=== PATIENT | female | born 1955 | race Caucasian/White ===

== ENCOUNTER 2017-09-17 08:39 | Day surgery (SDC) | payer OTHER ==
[~2017-09-17 08:39] MED LIST: Lactated Ringers 1,000 ML IV SCH; Sodium Chloride 0.9% 5 ML Syringe FLUSH PRN
[2017-09-17] MEDS ORDERED: Midazolam 1 MG/ML 2 ML SDV ONE (08:42)
[2017-09-17] MEDS ORDERED: Propofol 200 MG/20 ML SDV ONE ×2 (08:42→09:40)
[2017-09-17] MEDS ORDERED: Midazolam 1 MG/ML 2 ML SDV IV ONE (10:03)
[2017-09-17] MEDS ORDERED: Propofol 200 MG/20 ML SDV IV ONE (10:03)
--- NOTE | 2017-09-17 11:12 | PCM.PRNOTE ---
- Free Text/Narrative Note: PROCEDURE PERFORMED: Colonoscopy PRE-PROCEDURE DIAGNOSIS/INDICATION FOR PROCEDURE: +FIT CONSENT: Informed consent was obtained prior to the procedure after discussion of the risks (including pain, bleeding, infection, perforation, adverse reaction to anesthesia, cardiovascular event), benefits and alternatives and expected outcomes. The patient expressed understanding and wished to proceed. Verbal consent given and consent form signed. PROCEDURAL PAUSE: Completed SEDATION: Per anesthesia DESCRIPTION OF PROCEDURE: Patient was placed in the left lateral decubitus position. After adequate sedation and anesthetic was administered, a rectal exam was performed revealing healed external hemorrhoids. A lubricated Olympus Video Colonoscope was inserted into the rectum and air insufflation was performed. The colonoscope was advanced through the rectum, sigmoid, descending, transverse, and ascending colon without difficulties. The cecum was reached and the ileocecal valve as well as the appendiceal orifice were identified and pictorially documented. After adequate visualization of the cecum, the scope was withdrawn, giving 360- degree views of the colonic mucosa and retroflexion was performed in the rectum with the following findings noted: Ileocecal valve: Normal Cecum: Two polyps measuring 4mm and 7mm removed with forceps and hot snare respectively with adequate removal and subsequent hemostasis Ascending colon: Normal Hepatic flexure: Normal Transverse colon: Normal Splenic flexure: Normal Descending colon: Normal Sigmoid colon: Normal Rectum: Normal The scope was straightened, air suction performed, and the scope withdrawn without complication. Preparation adequacy good. IMPRESSION: Colonoscopy performed revealing two cecal poylps, pathology now pending, and external hemorrhoids PLAN: Will contact the patient when pathology results received with recommendation for repeat colonoscopy.
== END 2017-09-17 12:35 | disposition home or self-care (01) ==
LOC: KA.SDS 08:39
PROVIDERS: ATTEND Family Medicine
DX: R19.5 Other fecal abnormalities (principal); D12.0 Benign neoplasm of cecum; K64.4 Residual hemorrhoidal skin tags; K63.5 Polyp of colon; I10 Essential (primary) hypertension; Z68.41 Body mass index [BMI] 40.0-44.9, adult; Z79.899 Other long term (current) drug therapy; Z88.2 Allergy status to sulfonamides; Z88.1 Allergy status to other antibiotic agents; Z91.010 Allergy to peanuts
CPT/HCPCS: J2250; J2704; J7120

== ENCOUNTER 2020-07-20 14:42 | Emergency (ER) | payer OTHER ==
--- NOTE | 2020-07-20 15:02 | EDM.PDOC ---
ED HPI GENERAL MEDICAL PROBLEM - General Chief Complaint: General Stated Complaint: HIGH BLOOD PRESSURE,ANXIETY ATTACK Time Seen by Provider: 07/20/20 14:48 Source of Information: Reports: Patient, Provider History Limitations: Reports: No Limitations - History of Present Illness INITIAL COMMENTS - FREE TEXT/NARRATIVE: Patient presents with anxiety and panic that started this morning after hearing that her 17-year-old granddaughter apparently ran away during the night. She was discovered missing at 0700. Patient was vomiting and wretching incessantly when she went to the [facility] and saw ISAIAH Serrano who called me that she was coming via ambulance to ER. Pat did start IV and gave her Zofran 4 mg. Blood pressure has been high today too but isn't normally a problem patient says. She denies any pain and the nausea is much better now. She just feels very anxious. Treatments CHAIR TRIMMER: Reports: Nitroglycerin, Other (see below) Other Treatments CHAIR TRIMMER: nitro, aspirin, and zofran given in ambulance - Related Data Allergies Allergy/AdvReac Type Severity Reaction Status Date / Time peanut oil Allergy Hives Verified 07/20/20 14:46 Sulfa (Sulfonamide Allergy Rash Verified 07/20/20 14:46 Antibiotics) sulfamethoxazole Allergy Cannot Verified 07/20/20 14:46 [From Bactrim] Remember trimethoprim [From Bactrim] Allergy Cannot Verified 07/20/20 14:46 Remember Home Meds: Home Meds *Rup Rub 1 applic TOP TID PRN 09/14/17 [History] Ergocalciferol (Vitamin D2) [Vitamin D2] 50,000 unit PO WEEKLY 09/14/17 [History] Fluticasone Propionate [Flonase] 2 spray NASBOTH DAILY 09/14/17 [History] Ibuprofen 800 mg PO TID PRN 09/14/17 [History] estradioL [Vivelle-Dot] 1 patch TOP ASDIRECTED 09/14/17 [History] Past Medical History HEENT History: Reports: Impaired Vision Respiratory History: Reports: Sleep Apnea Gastrointestinal History: Reports: None Genitourinary History: Reports: 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: Musculoskeletal History: Reports: Back Pain, Chronic, Neck Pain, Chronic, Osteoarthritis - Infectious Disease History Infectious Disease History: Reports: Chicken Pox, Measles, Mumps - Past Surgical History HEENT Surgical History: Reports: Tonsillectomy Respiratory Surgical History: Reports: None GI Surgical History: Reports: Colonoscopy Female Surgical History: Reports: Hysterectomy Musculoskeletal Surgical History: Reports: Knee Replacement Social & Family History - Family History Family Medical History: No Pertinent Family History - Caffeine Use Caffeine Use: Reports: Coffee, Tea ED ROS GENERAL - Review of Systems Review Of Systems: See Below Constitutional: Denies: Fever, Chills, Malaise, Weakness HEENT: Reports: No Symptoms Respiratory: Denies: Shortness of Breath, Cough Cardiovascular: Denies: Chest Pain, Lightheadedness, Syncope GI/Abdominal: Reports: Nausea, Vomiting. Denies: Abdominal Pain, Constipation, Diarrhea : Denies: Dysuria, Flank Pain Musculoskeletal: Reports: No Symptoms Skin: Reports: No Symptoms Neurological: Denies: Confusion, Dizziness, Headache, Seizure, Syncope, Trouble Speaking, Difficulty Walking Psychiatric: Reports: Anxiety. Denies: Agitation, Confusion ED EXAM, GENERAL - Physical Exam Exam: See Below Exam Limited By: No Limitations General Appearance: Alert, WD/WN, No Apparent Distress Eye Exam: Bilateral Eye: EOMI, Normal Inspection, PERRL Ears: Normal External Exam, Hearing Grossly Normal Nose: Normal Inspection, No Blood Throat/Mouth: Normal Inspection, Normal Lips, Normal Voice, No Airway Compromise Head: Atraumatic, Normocephalic Neck: Normal Inspection, Full Range of Motion Respiratory/Chest: No Respiratory Distress, Lungs Clear, Normal Breath Sounds, No Accessory Muscle Use Cardiovascular: Regular Rate, Rhythm, No Murmur GI/Abdominal: Normal Bowel Sounds, Soft, Non-Tender, No Organomegaly, No Distention Back Exam: Normal Inspection, Full Range of Motion Extremities: Normal Inspection, Normal Range of Motion Neurological: Alert, Oriented, Normal Cognition, No Motor/Sensory Deficits Psychiatric: Normal Affect, Normal Mood Skin Exam: Warm, Dry, Intact, Normal Color, No Rash Course - Vital Signs Last Recorded V/S: Last Vital Signs Temp 97.8 F 07/20/20 14:48 Pulse 60 07/20/20 14:48 Resp 18 07/20/20 14:48 BP 196/101 H 07/20/20 14:48 Pulse Ox 99 07/20/20 14:48 - Orders/Labs/Meds Orders: Active Orders 24 hr Category Date Time Status LORazepam [Ativan] Med 07/20/20 14:56 Once 1 mg IVPUSH ONETIME ONE - Re-Assessments/Exams Free Text/Narrative Re-Assessment/Exam: 07/20/20 16:21 Patient is feeling much better now and appears relaxed and much less anxious. Nausea has been controlled with her initial dose of Zofran at the clinic. Lorazepam successfully controlled the anxiety and blood pressure. Patient has been monitored for 1.5 hours since the dosing of Lorazepam and has been stable throughout ER course. She feels ready to go home and would like a few Lorazepam to use if needed. We discussed the treatment regimen and a Rx for Lorazepam 0.5 mg #12, one po q8h prn was given. Discharged to home in stable condition. Departure - Departure Time of Disposition: 16:15 Disposition: Home, Self-Care 01 Condition: Good Clinical Impression: Panic attack as reaction to stress - Discharge Information Instructions: Panic Attack, [id number], Managing Anxiety, Adult Referrals: Pat Ocasio PA-C [Primary Care Provider] - Additional Instructions: You can use the Lorazepam as directed, if needed for anxiety or panic. You shouldn't take more often than 8 hours and only as needed. You had a dose in ER so don't take more today unless you need one at bedtime. Follow up with your PCP if this persists or worsens. Return to ER if needed. Sepsis Event Note (ED) - Evaluation Sepsis Screening Result: No Definite Risk - Focused Exam Vital Signs: Vital Signs Temp Pulse Resp BP Pulse Ox 07/20/20 14:48 97.8 F 60 18 196/101 H 99 - My Orders Last 24 Hours: My Active Orders 07/20/20 14:56 LORazepam [Ativan] 1 mg IVPUSH ONETIME ONE - Assessment/Plan Last 24 Hours: My Active Orders 07/20/20 14:56 LORazepam [Ativan] 1 mg IVPUSH ONETIME ONE
[2020-07-20] MEDS: LORazepam 2 MG/ML SDV IVPUSH ONE (15:03)
== END 2020-07-20 16:35 | disposition home or self-care (01) ==
LOC: KA.ED 14:42
DX: F41.0 Panic disorder [episodic paroxysmal anxiety] (principal); F43.9 Reaction to severe stress, unspecified; Z91.010 Allergy to peanuts; Z88.2 Allergy status to sulfonamides; Z88.1 Allergy status to other antibiotic agents
CPT/HCPCS: 96374; 99284; 99284-25; J2060

== ENCOUNTER → 2020-08-28 18:33 | Emergency (ER) | payer OTHER ==
[~2020-08-28 18:33] MED LIST changes: +LORazepam 2 MG/ML SDV IVPUSH ONE; -Lactated Ringers 1,000 ML IV SCH; +Ondansetron 4 MG/2 ML SDV IVPUSH ONE; +Ondansetron 4 MG/2 ML SDV ONE; -Sodium Chloride 0.9% 5 ML Syringe FLUSH PRN
--- NOTE | 2020-08-28 19:23 | CT ---
[id number] CT/CT Head WO IV EXAM: CT Head WO IV CLINICAL DATA: HEADACHE COMPARISON STUDY: None FINDINGS: No intracranial hemorrhage, extra-axial fluid collection, or acute ischemia. 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 The mass measures up to 1.2 cm. Generalized parenchymal atrophy with scattered areas of nonspecific white matter disease, commonly seen as sequela of chronic microvascular ischemia. Soft tissues are unremarkable. Paranasal sinuses and mastoid air cells are clear. IMPRESSION: No acute intracranial findings. Peña Layton DO 08/28/20 192 Thank you for allowing us to participate in the care of your patient.
--- NOTE | 2020-08-28 19:24 | EDM.PDOC ---
ED HPI GENERAL MEDICAL PROBLEM - General Chief Complaint: Headache Stated Complaint: HEADACHE Time Seen by Provider: 08/28/20 19:00 Source of Information: Reports: Patient History Limitations: Reports: No Limitations - History of Present Illness INITIAL COMMENTS - FREE TEXT/NARRATIVE: 65 YO WF PRESENTS TO ER COMPLAINING OF A FRONTAL HEADACHE WHICH BEGAN EARLIER TODAY. PT REPORTS SHE IS UNDER A LOT OF STRESS AND WHEN THAT OCCURS SHE DEVELOPS A HEADACHE. PT STATES SHE TOOK HER BLOOD PRESSURE TODAY AND HAD READING AT HOME OF 180/90'S PROMPTING CONCERN AND ER EVALUATION. PT WITH ASSOCIATED NAUSEA WITHOUT VOMITING. PT DENIES NECK PAIN, NO FEVER/CHILLS AND NO RECENT ILLNESSES. PT ALERT AND ORIENTED X4, GCS-15. CURRENT BP IN ER 161/83. Onset: Today Duration: Getting Worse Location: Reports: Head Quality: Reports: Ache Severity: Moderate Improves with: Reports: None Worsens with: Reports: None Associated Symptoms: Reports: No Other Symptoms, Headaches, Nausea/Vomiting. De nies: Confusion, Cough, Fever/Chills, Seizure, Syncope, Weakness Headache Pain Score (Numeric/FACES): 10 - Related Data Allergies Allergy/AdvReac Type Severity Reaction Status Date / Time peanut oil Allergy Hives Verified 08/28/20 19:14 Sulfa (Sulfonamide Allergy Rash Verified 08/28/20 19:14 Antibiotics) sulfamethoxazole Allergy Cannot Verified 08/28/20 19:14 [From Bactrim] Remember trimethoprim [From Bactrim] Allergy Cannot Verified 08/28/20 19:14 Remember Home Meds: Home Meds *Rup Rub 1 applic TOP TID PRN 09/14/17 [History] Ergocalciferol (Vitamin D2) [Vitamin D2] 50,000 unit PO WEEKLY 09/14/17 [History] Fluticasone Propionate [Flonase] 2 spray NASBOTH DAILY 09/14/17 [History] Ibuprofen 800 mg PO TID PRN 09/14/17 [History] estradioL [Vivelle-Dot] 1 patch TOP ASDIRECTED 09/14/17 [History] Ascorbate Calcium [Vitamin C] 500 mg PO DAILY 08/28/20 [History] Fish Oil/[place]-3 Fatty Acids [Fish Oil 1,000 MG] 1 gm PO DAILY 08/28/20 [History] Multivitamin [One-Daily Multi-Vitamin] 1 tab PO DAILY 08/28/20 [History] Past Medical History HEENT History: Reports: Impaired Vision Cardiovascular History: Reports: Hypertension Other Cardiovascular History: hypertension with stress Respiratory History: Reports: Sleep Apnea Gastrointestinal History: Reports: None Genitourinary History: Reports: 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 - Infectious Disease History Infectious Disease History: Reports: Chicken Pox, Measles, Mumps - Past Surgical History HEENT Surgical History: Reports: Tonsillectomy Respiratory Surgical History: Reports: None GI Surgical History: Reports: Appendectomy, Colonoscopy Female Surgical History: Reports: Hysterectomy Musculoskeletal Surgical History: Reports: Knee Replacement Other Musculoskeletal Surgeries/Procedures:: back and neck surgeries. bilateral knees and feet. Social & Family History - Family History Family Medical History: No Pertinent Family History - Tobacco Use Tobacco Use Status *Q: Never Tobacco User - Caffeine Use Caffeine Use: Reports: Coffee, Tea - Recreational Drug Use Recreational Drug Use: No ED ROS GENERAL - Review of Systems Review Of Systems: See Below Constitutional: Reports: No Symptoms HEENT: Reports: No Symptoms Respiratory: Reports: No Symptoms Cardiovascular: Reports: No Symptoms Endocrine: Reports: No Symptoms GI/Abdominal: Reports: Nausea : Reports: No Symptoms Musculoskeletal: Reports: No Symptoms Skin: Reports: No Symptoms Neurological: Reports: Dizziness, Headache. Denies: Confusion Psychiatric: Reports: No Symptoms Hematologic/Lymphatic: Reports: No Symptoms Immunologic: Reports: No Symptoms - Physical Exam Exam: See Below Exam Limited By: No Limitations General Appearance: Alert, WD/WN, No Apparent Distress Eye Exam: Bilateral Eye: EOMI, PERRL Head Exam: Atraumatic, Normocephalic Neck: Normal Inspection, Supple, Non-Tender, Full Range of Motion Respiratory/Chest: No Respiratory Distress, Lungs Clear, Normal Breath Sounds, No Accessory Muscle Use, Chest Non-Tender Cardiovascular: Normal Peripheral Pulses, Regular Rate, Rhythm, No Edema, No Gallop, No JVD, No Murmur, No Rub GI/Abdominal: Normal Bowel Sounds, Soft, Non-Tender, No Organomegaly, No Distention, No Abnormal Bruit, No Mass Back Exam: Normal Inspection, Full Range of Motion, NT Extremities: Normal Inspection, Normal Range of Motion, Non-Tender, No Pedal Edema, Normal Capillary Refill Psychiatric: Normal Affect, Anxious Skin Exam: Warm, Dry, Intact, Normal Color, No Rash Course - Vital Signs Last Recorded V/S: Last Vital Signs Temp 97.1 F 08/28/20 18:58 Pulse 71 08/28/20 18:58 Resp 18 08/28/20 18:58 BP 161/83 H 08/28/20 19:40 Pulse Ox 98 08/28/20 18:58 - Orders/Labs/Meds Meds: Medications Discontinued Medications Generic Name Dose Route Start Last Admin Trade Name Freq PRN Reason Stop Dose Admin Lorazepam 1 mg 08/28/20 19:23 08/28/20 19:31 Lorazepam 2 Mg/Ml Sdv IVPUSH 08/28/20 19:24 1 mg ONETIME ONE Administration Ondansetron HCl Confirm 08/28/20 19:07 08/28/20 19:17 Ondansetron 4 Mg/2 Ml Sdv Administered 08/28/20 19:08 Not Given Dose 4 mg .ROUTE .STK-MED ONE Ondansetron HCl 4 mg 08/28/20 19:05 08/28/20 19:07 Ondansetron 4 Mg/2 Ml Sdv IVPUSH 08/28/20 19:06 4 mg ONETIME ONE Administration - Radiology Interpretation Free Text/Narrative:: CT HEAD- NAD - Re-Assessments/Exams Free Text/Narrative Re-Assessment/Exam: 08/28/20 20:06 PT REPORTS FEELING MUCH IMPROVED AFTER ZOFRAN/ATIVAN. CURRENTLY PT WITH A BP OF 142/70. PT ALERT AND ORIENTED X 3 AND IN NAD. PT WOULD LIKE TO GO HOME AND REST Departure - Departure Time of Disposition: 20:09 Disposition: Home, Self-Care 01 Condition: Good Clinical Impression: Headache Qualifiers: Headache type: tension-type Headache chronicity pattern: acute headache Intractability: not intractable Qualified Code(s): G44.209 - Tension-type headache, unspecified, not intractable Hypertension Qualifiers: Hypertension type: unspecified Qualified Code(s): I10 - Essential (primary) hypertension - Discharge Information Instructions: Managing Your Hypertension, General Headache Without Cause Referrals: Pat Ocasio PA-C [Primary Care Provider] - Forms: ED Department Discharge Additional Instructions: 1. DISCHARGE HOME 2. REST 3. TAKE BLOOD PRESSURE DAILY AND RECORD AND FOLLOW UP WITH PCP IN 1 WEEK FOR RE- EVALUATION OF HYPERTENSION 4. RETURN TO ER FOR WORSENING SYMPTOMS Sepsis Event Note (ED) - Evaluation Sepsis Screening Result: No Definite Risk - Focused Exam Vital Signs: Vital Signs Temp Pulse Resp BP Pulse Ox 08/28/20 19:40 161/83 H 08/28/20 19:15 168/94 H 08/28/20 18:58 97.1 F 71 18 184/85 H 98 - Assessment/Plan Assessment:: 1. [id number] 2. HYPERTENSION- IMPROVED Plan: 1. DISCHARGE HOME 2. REST 3. TAKE BLOOD PRESSURE DAILY AND RECORD AND FOLLOW UP WITH PCP IN 1 WEEK FOR RE- EVALUATION OF HYPERTENSION 4. RETURN TO ER FOR WORSENING SYMPTOMS
== END | disposition home or self-care (01) ==
LOC: KA.ED 18:33
DX: G44.209 Tension-type headache, unspecified, not intractable (principal); I10 Essential (primary) hypertension; Z91.010 Allergy to peanuts; Z88.2 Allergy status to sulfonamides; Z88.1 Allergy status to other antibiotic agents
CPT/HCPCS: 70450; 96374; 96375; 99284; J2060; J2405

== ENCOUNTER 2022-11-07 07:00 | Day surgery (SDC) | payer BC ==
[~2022-11-07 07:00] MED LIST changes: -LORazepam 2 MG/ML SDV IVPUSH ONE; +Lactated Ringers 1,000 ML IV SCH; -Ondansetron 4 MG/2 ML SDV IVPUSH ONE; -Ondansetron 4 MG/2 ML SDV ONE; +Sodium Chloride 0.9% 10 ML Syringe FLUSH PRN
[2022-11-07] MEDS ORDERED: Ondansetron 4 MG/2 ML SDV IV ONE (07:01)
[2022-11-07] MEDS ORDERED: Midazolam 1 MG/ML 2 ML SDV ONE (08:14)
[2022-11-07] MEDS ORDERED: Propofol 200 MG/20 ML SDV ONE (08:15)
== END 2022-11-07 10:10 | disposition home or self-care (01) ==
LOC: KA.SDS 07:00
PROVIDERS: ATTEND Family Medicine
DX: E66.9 Obesity, unspecified (principal); I10 Essential (primary) hypertension; F41.9 Anxiety disorder, unspecified; E78.00 Pure hypercholesterolemia, unspecified; M19.072 Primary osteoarthritis, left ankle and foot; M76.829 Posterior tibial tendinitis, unspecified leg; Z68.41 Body mass index [BMI] 40.0-44.9, adult; Z91.010 Allergy to peanuts; Z68.42 Body mass index [BMI] 45.0-49.9, adult; Z86.010 Personal history of colon polyps; Z88.2 Allergy status to sulfonamides; Z91.09 Other allergy status, other than to drugs and biological substances
CPT/HCPCS: J2250; J2405; J2704; J7120